=== PATIENT | male | born 1955 | race Hispanic/Latino ===

== ENCOUNTER 2019-10-16 08:50 | Emergency (ER) | payer BC ==
[~2019-10-16] VITALS: Ht 182.9 cm; Wt 96.2 kg
[2019-10-16] MEDS ORDERED: SODIUM CHLORIDE 0.9% 1000ML 1,000 ML IV STA (09:10)
[2019-10-16] MEDS ORDERED: CEFEPIME 2 GM/NS 0.9% 100 ML 100 ML IV SCH (09:15)
[2019-10-16] MEDS ORDERED: METOPROLOL TARTRATE 25 MG TAB PO ONE (09:15)
[2019-10-16 09:51] LABS: BASOPHILS % 0.4 % (0.0-1.0); EOSINOPHILS # (AUTO) 0.1 (0.0-0.4); EOSINOPHILS % 0.6 % (0.0-6.0); HEMATOCRIT 46.4 % (38.2-49.6); HEMOGLOBIN 16.8 g/dL (14.0-18.0); LYMPHOCYTES # (AUTO) 1.9 (1.0-3.2); LYMPHOCYTES % 18.3 % (18.0-39.1); MEAN CORPUSCULAR HEMOGLOBIN 33.5 pg (28-32); MEAN CORPUSCULAR HGB CONC 36.2 g/dL (31-35); MEAN CORPUSCULAR VOLUME 92.6 fL (81-99); MONOCYTES # (AUTO) 0.9 (0.2-0.8); MONOCYTES % 8.7 % (4.4-11.3); NEUTROPHILS # (AUTO) 7.3 (2.1-6.9); NEUTROPHILS % 71.6 % (38.7-80.0); PLATELET COUNT 151 x10e3/uL (140-360); RED BLOOD COUNT 5.01 x10e6/uL (4.3-5.7)
[2019-10-16] MEDS ORDERED: AZITHROMYCIN 500MG/NS 250 ML 250 ML IV SCH (10:00)
[2019-10-16 10:28] LABS: ALBUMIN 4.4 g/dL (3.5-5.0); ALBUMIN/GLOBULIN RATIO 1.3 (0.8-2.0); ANION GAP 20.5 mmol/L (8-16); CALCIUM 9.2 mg/dL (8.4-10.2); CREATININE, SERUM 1.49 mg/dL (0.72-1.25); POTASSIUM 3.5 mmol/L (3.5-5.1)
--- NOTE | 2019-10-16 10:31 | Diagnostic Imaging Report ---
EXAM: CHEST SINGLE (PORTABLE) DATE: 10/16/2019 9:55 AM INDICATION: Cough, shortness breath, chest pain COMPARISON: None FINDINGS: The trachea is midline. There are mildly increased bibasilar opacity suggestive of atelectasis. The lungs are otherwise symmetrically expanded without evidence for large focal consolidation, pneumothorax, or significant pleural effusion. The cardiomediastinal silhouette and pulmonary vasculature are within normal limits. No acute osseous abnormality is identified. The surrounding soft tissues are unremarkable. IMPRESSION: No acute cardiopulmonary process identified. Signed by: Dr. Fred Pascual MD on 10/16/2019 10:27 AM
[2019-10-16 10:40] LABS: B-TYPE NATRIURETIC PEPTIDE2 32.5 pg/mL (0-100); INR 0.95; PROTHROMBIN TIME 13.2 seconds (11.9-14.5)
[2019-10-16 10:41] LABS: PARTIAL THROMBOPLASTIN TIME 25.6 seconds (23.8-35.5)
[2019-10-16 10:52] LABS: CREATINE KINASE MB 3.5 ng/mL (0-5.0)
[2019-10-16] MEDS ORDERED: VANCOMYCIN 1GM/NS 250 ML 250 ML IV ONE (11:00)
[2019-10-16] MEDS ORDERED: METHYLPREDNISOLONE SOD SUCC 125 MG/2ML VIAL IV STA (11:39)
--- NOTE | 2019-10-16 11:54 | Emergency Department Note ---
History of Present Illnes History of Present Illness Chief Complaint: COVID PUI History of Present Illness This is a 64 year old male PATIENT IN FROM HOME WITH COMPLAINTS OF COUGH AND ACHINESS X 1 WEEK, 6 EPISODES OF VOMITING AND DIARRHEA YESTERDAY. PATIENT ALSO WITH COMPLAINTS OF CHEST PAIN OFF AND ON FOR ABOUT 30 SECONDS X 1 WEEK. Historian: Patient Arrival Mode: Car Telecommunications Field Engineer Required: No Onset (how long ago): week(s) (1) Location: chest Quality: pain Radiation: Reports non-radiation Severity: moderate Onset quality: gradual Timing of current episode: intermittent Progression: waxing and waning Chronicity: new Context: Reports recent illness Relieving factors: none Exacerbating factors: none Associated symptoms: Reports chest pain, Reports cough, Reports fever/chills, Reports nausea/vomiting, Reports weakness Treatments prior to arrival: none Past Medical/Family History Physician Review I have reviewed the patient's past medical and family history. Any updates have been documented here. Past Medical History Recent Fever: Yes Clinical Suspicion of Infectio: Yes New/Unexplained Change in Ment: No Past Medical History: Cancer Past Surgical History: T&A Other Surgery: LIVER TRANSPLANT 2015 LEFT SHOULDER SURGERY Social History Smoking Cessation: Never Smoker Counseling Performed: No Alcohol Use: None Any Illegal Drug Use: No TB Exposure/Symptoms: No Physically hurt or threatened: No Family History Family history of heart diseas: No Other Last Tetanus: 02/2019 Any Pre-Existing Lines (PICC,: No Is patient up to date on immun: Yes Last Flu: UTD Last Pneumovax: NA Review of Systems Review of Systems Constitutional: Reports as per HPI EENTM: Reports no symptoms Cardiovascular: Reports as per HPI Respiratory: Reports as per HPI Gastrointestinal: Reports no symptoms Genitourinary: Reports no symptoms Musculoskeletal: Reports no symptoms Integumentary: Reports no symptoms Neurological: Reports no symptoms Psychological: Reports no symptoms Endocrine: Reports no symptoms Hematological/Lymphatic: Reports no symptoms Physical Exam Related Data Allergies: Coded Allergies: No Known Allergies (Unverified , 10/16/19) Triage Vital Signs Vital Signs Date Time Temp Pulse Resp B/P (MAP) Pulse Ox O2 Delivery O2 Flow Rate FiO2 10/16/19 08:52 97.1 103 20 162/118 96 Vital signs reviewed: Yes Physical Exam CONSTITUTIONAL Constitutional: Present well-developed, Present well-nourished HENT HENT: Present normocephalic, Present atraumatic, Present oropharynx clear/moist, Present nose normal HENT L/R: Present left ext ear normal, Present right ext ear normal EYES Eyes: Reports PERRL, Reports conjunctivae normal NECK Neck: Present ROM normal PULMONARY Pulmonary: Present effort normal, Present breath sounds normal CARDIOVASCULAR Cardiovascular: Present regular rhythm, Present heart sounds normal, Present capillary refill normal, Present normal rate GASTROINTESTINAL Abdominal: Present soft, Present nontender, Present bowel sounds normal GENITOURINARY Genitourinary: Present exam deferred SKIN Skin: Present warm, Present dry MUSCULOSKELETAL Musculoskeletal: Present ROM normal NEUROLOGICAL Neurological: Present alert, Present oriented x 3, Present no gross motor or sensory deficits PSYCHOLOGICAL Psychological: Present mood/affect normal, Present judgement normal Results Laboratory Result Diagram: 10/16/1930 10/16/19 0930 Laboratory Laboratory Tests Test 10/16/19 09:30 White Blood Count 10.16 x10e3/uL (4.8-10.8) Red Blood Count 5.01 x10e6/uL (4.3-5.7) Hemoglobin 16.8 g/dL (14.0-18.0) Hematocrit 46.4 % (38.2-49.6) Mean Corpuscular Volume 92.6 fL (81-99) Mean Corpuscular Hemoglobin 33.5 pg (28-32) Mean Corpuscular Hemoglobin Concent 36.2 g/dL (31-35) Red Cell Distribution Width 12.0 % (11.7-14.4) Platelet Count 151 x10e3/uL (140-360) Neutrophils (%) (Auto) 71.6 % (38.7-80.0) Lymphocytes (%) (Auto) 18.3 % (18.0-39.1) Monocytes (%) (Auto) 8.7 % (4.4-11.3) Eosinophils (%) (Auto) 0.6 % (0.0-6.0) Basophils (%) (Auto) 0.4 % (0.0-1.0) Neutrophils # (Auto) 7.3 (2.1-6.9) Lymphocytes # (Auto) 1.9 (1.0-3.2) Monocytes # (Auto) 0.9 (0.2-0.8) Eosinophils # (Auto) 0.1 (0.0-0.4) Basophils # (Auto) 0.0 (0.0-0.1) Absolute Immature Granulocyte (auto 0.04 x10e3/uL (0-0.1) Prothrombin Time 13.2 seconds (11.9-14.5) Prothromb Time International Ratio 0.95 Activated Partial Thromboplast Time 25.6 seconds (23.8-35.5) Sodium Level 131 mmol/L (136-145) Potassium Level 3.5 mmol/L (3.5-5.1) Chloride Level 94 mmol/L (98-107) Carbon Dioxide Level 20 mmol/L (22-29) Anion Gap 20.5 mmol/L (8-16) Blood Urea Nitrogen 41 mg/dL (7-26) Creatinine 1.49 mg/dL (0.72-1.25) Estimat Glomerular Filtration Rate 47 ML/MIN (60-) BUN/Creatinine Ratio 28 (6-25) Glucose Level 129 mg/dL (74-118) Lactic Acid Level 0.9 mmol/L (0.5-2.0) Calcium Level 9.2 mg/dL (8.4-10.2) Total Bilirubin 1.5 mg/dL (0.2-1.2) Aspartate Amino Transf (AST/SGOT) 194 IU/L (5-34) Alanine Aminotransferase (ALT/SGPT) 43 IU/L (0-55) Alkaline Phosphatase 104 IU/L (40-150) Creatine Kinase 211 IU/L (30-200) Creatine Kinase MB 3.50 ng/mL (0-5.0) Troponin I 0.013 ng/mL (0-0.300) B-Type Natriuretic Peptide 32.5 pg/mL (0-100) Total Protein 7.9 g/dL (6.5-8.1) Albumin 4.4 g/dL (3.5-5.0) Globulin 3.5 g/dL (2.3-3.5) Albumin/Globulin Ratio 1.3 (0.8-2.0) Lab results reviewed: Yes Imaging Imaging results reviewed: Yes Impressions Procedure: [id number] DX/CHEST SINGLE (PORTABLE) Exam Date: Exam Time: REPORT STATUS: Signed EXAM: CHEST SINGLE (PORTABLE) DATE: 10/16/2019 9:55 AM INDICATION: Cough, shortness breath, chest pain COMPARISON: None FINDINGS: The trachea is midline. There are mildly increased bibasilar opacity suggestive of atelectasis. The lungs are otherwise symmetrically expanded without evidence for large focal consolidation, pneumothorax, or significant pleural effusion. The cardiomediastinal silhouette and pulmonary vasculature are within normal limits. No acute osseous abnormality is identified. The surrounding soft tissues are unremarkable. IMPRESSION: No acute cardiopulmonary process identified. Signed by: Dr. Fred Pascual MD on 10/16/2019 10:27 AM Assessment & Plan Medical Decision Making MDM cbc, chem's, ecg, cardiacs, blood cx's, lactic, cxr, COVID swab - r/o COVID19, leukocytosis, pneumonia, STEMI/NSTEMI, liver rejection Reassessment Reassessment I attempted to transfer to [facility], spoke with liver team - LFT's are elevated from baseline as is his renal function. cyber forensics analyst initiated transfer and was told they have no tele beds. I then spoke to Dr Farrell to admit here as Obs Assessment & Plan Final Impression: (1) Viral syndrome (2) Chest pain (3) Renal insufficiency (4) Elevated liver enzymes Depart Disposition: ADMITTED Last Vital Signs Date Time Temp Pulse Resp B/P (MAP) Pulse Ox O2 Delivery O2 Flow Rate FiO2 10/16/19 08:52 97.1 103 20 162/118 96 Medications in the ED Sodium Chloride 1,000 ml @ 0 mls/hr Q0M STAT IV Last administered on 10/16/19 11:01; Admin Dose 1,000 MLS/HR; Start 10/16/19 at 09:10; Stop 10/16/19 at 09:20; Status DC Cefepime HCl 100 ml @ 200 mls/hr Q12H IV Last administered on 10/16/19 11:02; Admin Dose 200 MLS/HR; Start 10/16/19 at 09:15; Stop 10/23/19 at 09:14 Azithromycin 250 ml @ 250 mls/hr Q24H IV Last administered on 10/16/19 11:02; Admin Dose 250 MLS/HR; Start 10/16/19 at 10:00; Stop 10/23/19 at 09:59 Metoprolol Tartrate 25 mg ONCE ONCE PO Last administered on 6/24/20at 11:02; Admin Dose 25 MG; Start 10/16/19 at 09:15; Stop 10/16/19 at 09:41; Status DC Vancomycin HCl 250 ml @ 167 mls/hr NOW ONCE IV ; Start 10/16/19 at 11:00; Stop 10/16/19 at 12:29 Methylprednisolone Sodium Succinate 125 mg ONCE STAT IV ; Start 10/16/19 at 11:39; Stop 10/16/19 at 11:40; Status DC SHERLY BAIRES MD Oct 16, 2019 11:54
[2019-10-16] MEDS ORDERED: NITROGLYCERIN 0.4 MG SUBL SL PRN (12:00)
[2019-10-16] MEDS ORDERED: ONDANSETRON HCL INJ 2MG/ML 2ML 2 MG/ML VIAL IV PRN (12:00)
[2019-10-16] MEDS ORDERED: SODIUM CHLORIDE 0.9% 1000ML 1,000 ML IV SCH (12:00)
[2019-10-16] MEDS ORDERED: METOPROLOL TARTRATE 25 MG TAB PO SCH (15:00)
== END 2019-10-16 16:55 | disposition home or self-care (01) ==
LOC: ER 08:50 → ERHOLD 11:55 → UNDOADMOB 11:55 → ERHOLD 16:55 → UNDODISOB 16:55
DX: R05 Cough (principal); R07.9 Chest pain, unspecified; B34.9 Viral infection, unspecified; N28.9 Disorder of kidney and ureter, unspecified; R94.5 Abnormal results of liver function studies; Z11.59 Encounter for screening for other viral diseases
CPT/HCPCS: 36415; 71045; 80053; 82550; 82553; 83605; 83880; 84484; 85025; 85610; 85730; 87040; 87635; 93005; 99284; J0456; J3370; J7030